=== PATIENT | female | born 1960 | race Caucasian/White ===

== ENCOUNTER 2021-03-31 16:14 | Outpatient (CLI) | payer BC | END 2021-03-31 16:15 | disposition home or self-care (01) | LOC: CSHLAB 16:14 | PROVIDERS: ATTEND Obstetrics & Gynecology | DX: Z01.812 Encounter for preprocedural laboratory examination (principal); Z20.822 Contact with and (suspected) exposure to COVID-19; N87.9 Dysplasia of cervix uteri, unspecified; R87.810 Cervical high risk human papillomavirus (HPV) DNA test positive | CPT/HCPCS: 85027; 86850; 86900; 86901; U0003; U0005 ==

== ENCOUNTER 2021-04-05 08:25 | Day surgery (SDC) | payer BC ==
[2021-03-30 13:31] VITALS: BMI 27.3
[2021-03-31 17:26] LABS: Hemoglobin 12.8 g/dL (12.0-15.5); Mean Corpuscular HGB CONC 31.5 g/dL (32.0-36.0); Mean Corpuscular Hemoglobin 31.1 pg (27.0-33.0); Mean Corpuscular Volume 98.5 fl (81.6-98.3); Mean Platelet Volume 9.9 fl (7.4-10.4); Platelet Count 399 10x3/uL (150-450); RBC Distribution Width 12.4 % (11.5-14.5); Red Blood Cell (RBC) Count 4.12 10x6/uL (3.90-5.03); White Blood Cell (WBC) Count 7.7 10x3/uL (3.5-10.5)
[2021-04-01 12:12] LABS: SARS-CoV-2 PCR by NAA Not Detected (NotDetected)
[2021-04-05] MEDS ORDERED: Gabapentin 300 MG CAP ONE (08:32)
[2021-04-05] MEDS ORDERED: Famotidine/PF 20 mg/2ml Vial ONE (08:33)
[2021-04-05] MEDS ORDERED: CeleCOXIB 100 MG CAP ONE (08:33)
[2021-04-05] MEDS ORDERED: Lidocaine 1% MPF 2 ML VIAL ONE (08:33)
[2021-04-05] MEDS ORDERED: EPINEPHrine 1 MG/ML AMP ONE (09:33)
[2021-04-05] MEDS ORDERED: Bupivacaine PF 0.5% 30 ML VIAL ONE (09:33)
[2021-04-05] MEDS ORDERED: Dexamethasone 20 MG/5 ML VIAL ONE (09:39)
[2021-04-05] MEDS ORDERED: Lidocaine 1% PF 5 ML VIAL ONE (09:39)
[2021-04-05] MEDS ORDERED: Rocuronium Bromide 10 MG/ML (10ML VIAL) ONE (09:39)
[2021-04-05] MEDS ORDERED: Ondansetron PF 4 MG/2 ML Vial ONE (09:39)
[2021-04-05] MEDS ORDERED: PROPOFOL 20 ML ONE (09:39)
[2021-04-05] MEDS ORDERED: Fentanyl 250 MCG/5 ML VIAL ONE (10:08)
[2021-04-05] MEDS ORDERED: Midazolam HCl 2 mg/2 ml Vial ONE (10:08)
[2021-04-05] MEDS ORDERED: ePHEDrine Sulfate 50 MG/10 ML VIAL ONE (10:09)
[2021-04-05] MEDS ORDERED: Promethazine HCl 25 MG/ML VIAL ONE (10:14)
[2021-04-05] MEDS ORDERED: Dexmedetomidine 200 MCG/2 ML VIAL ONE (10:15)
[2021-04-05] MEDS ORDERED: SUGAMMADEX SODIUM 200 MG/2 ML VIAL ONE (10:15)
[2021-04-05] MEDS ORDERED: Lidocaine 2% Jelly 5 ML TUBE ONE (10:22)
[2021-04-05] MEDS ORDERED: ceFAZolin 2 GM/Dextrose 50 ML IVPB ONE (10:25)
[2021-04-05] MEDS ORDERED: Fentanyl 100 MCG/2 ML VIAL ONE (12:46)
== END 2021-04-05 15:10 | disposition home or self-care (01) ==
LOC: CSHSDC 08:25
PROVIDERS: ATTEND Obstetrics & Gynecology
PROC: 0UT74ZZ Resection of Bilateral Fallopian Tubes, Percutaneous Endoscopic Approach (ICD-10-PCS; principal; 2021-04-05)
PROC: 0UT24ZZ Resection of Bilateral Ovaries, Percutaneous Endoscopic Approach (ICD-10-PCS; principal; 2021-04-05)
PROC: 0UT94ZZ Resection of Uterus, Percutaneous Endoscopic Approach (ICD-10-PCS; principal; 2021-04-05)
DX: N87.1 Moderate cervical dysplasia (principal); A63.0 Anogenital (venereal) warts; E03.9 Hypothyroidism, unspecified; Z79.899 Other long term (current) drug therapy; Z20.822 Contact with and (suspected) exposure to COVID-19
CPT/HCPCS: 85027; 86850; 86900; 86901; 88307; J0171; J0690; J1100; J2250; J2405; J2550; J2704; J3010; S0020; S0028; U0003; U0005